=== PATIENT | female | born 1995 | race Asian ===

== ENCOUNTER 2017-03-18 19:28 | Emergency (ER) | payer OTHER ==
[~2017-03-18] VITALS: Ht 165.1 cm; Wt 61.0 kg
[2017-03-18 19:43] VITALS: TEMP 36.8; Ht 165.1 cm; Wt 61.0 kg
[2017-03-18] MEDS ORDERED: ACETAMINOPHEN 500 MG TAB PO STA (19:54)
[2017-03-18] MEDS ORDERED: ALBUTEROL HFA 8 GM INHALER INH ONE (20:00)
--- NOTE | 2017-03-18 20:09 | EMERGENCY ROOM VISIT NOTE ---
History Report prepared by Arash: Nataly Gilman Under the Supervision of: Dr. Fidencio Carmen M.D. First contact with patient: 19:49 Chief Complaint: FLU LIKE SX Stated Complaint: COLD,FEVER,COUGH History of Present Illness The patient is a 21 year old female who presents to the Emergency Room with complaints of worsening flu-like symptoms for the past 3 weeks. The patient states that she has had cold symptoms for the past 3 weeks. She reports rhinorrhea and a productive cough. Her symptoms have not been improving. Yesterday she developed a fever. She states that she has had a fever today as well. She did not check her temperature [employer]. The patient has been taking ibuprofen for her symptoms. She denies ear pain, sore throat, vomiting, diarrhea , urinary symptoms, and chance of . She did not get a flu shot this year. She denies any recent sick contacts. Source of History: patient Onset: 3 weeks ago Position: other (global) Quality: other (flu-like) Timing: worsening Modifying Factors (Relieving): ibuprofen Associated Symptoms: + fevers, + cough, No sorethroat, No vomiting, No diarrhea, No urinary symptoms Review of Systems See HPI for pertinent positives & negatives. A total of 10 systems reviewed and were otherwise negative. Past Medical & Surgical Medical Problems: (1) No significant active problems Family History No pertinent history stated. Social History Smoking Status: Never Smoker Occupation Status: [employer] student Current/Historical Medications Scheduled Amoxicillin (Amoxil), 500 MG PO TID Oseltamivir (Tamiflu), 75 MG PO BID Scheduled PRN ["Fever Medicine"], 1 DOSE PO DIRECTED PRN for Fever Allergies Coded Allergies: No Known Allergies (Unverified , 03/18/17) Physical Exam Vital Signs Date Time Temp Pulse Resp B/P (MAP) Pulse Ox O2 Delivery O2 Flow Rate FiO2 03/18/17 19:43 36.8 97 16 121/82 95 Room Air Physical Exam GENERAL: Patient is in no acute distress. HEENT: No acute trauma, normocephalic atraumatic, mucous membranes moist, no nasal congestion, no scleral icterus. TMs clear bilaterally. No throat erythema or exudate. NECK: No stridor, no adenopathy, no meningismus, trachea is midline. LUNGS: Decreased breath sounds, no wheezing or rhonchi, breath sounds are equal , dry cough noted. HEART: Without murmurs gallops or rubs, regular rate and rhythm. ABDOMEN: Soft, nontender, bowel sounds positive, no hernias, no peritonitis. EXTREMITIES: No cyanosis or edema, full range of motion of all the joints without pain or difficulty, no signs for acute trauma. NEUROLOGIC: Oriented x 3, no acute motor or sensory deficits, no focal weakness. SKIN: No rash, no jaundice, no diaphoresis. Medical Decision & Procedures ER Provider Diagnostic Interpretation: Radiology results as stated below per my review and radiologist interpretation: CHEST ONE VIEW PORTABLE HISTORY: 21 years-old Female cough, fever acute cough and fever COMPARISON: None available TECHNIQUE: Portable AP view of the chest FINDINGS: Cardiomediastinal and hilar silhouettes are within normal limits. No pneumothorax, pleural effusion, focal airspace consolidation or overt pulmonary edema. The bones of the chest appear grossly intact. IMPRESSION: No acute process. The above report was generated using voice recognition software. It may contain grammatical, syntax or spelling errors. Electronically signed by: Dejon Huang M.D. 03/18/2017 8:17 PM Dictated Date/Time: 03/18/2017 8:16 PM Medications Administered Medications (Trade) Dose Ordered Sig/Jael Route Start Time Stop Time Status Last Admin Dose Admin Albuterol (Ventolin Hfa Inhaler) 3 puffs NOW ONCE INH 03/18/17 20:00 03/18/17 20:01 DC 03/18/17 20:06 3 PUFFS Acetaminophen (Tylenol Tab) 1,000 mg NOW STAT PO 03/18/17 19:54 03/18/17 19:56 DC 03/18/17 20:06 1,000 MG ED Course 1948: The patient was evaluated in room B5. A complete history and physical exam was performed. 1953: Tylenol 1000 mg PO 1999: Albuterol 3 puffs INH 2016: Tamiflu 75 mg PO, Amoxicillin 500 mg PO 2020: I reassessed the patient at this time. She is feeling better and resting comfortably. I discussed the results and treatment plan with the patient. I answered all pertaining questions that she had. She expressed understanding and verbalized agreement. The patient will be discharged home. Medical Decision Differential diagnoses includes influenza, flu-like illness, sinusitis, pneumonia, dehydration, pharyngitis, otitis media. The patient presents with 3 weeks of cold symptoms and now fever for 2 days. Chest film does not show pneumonia. On exam, there is no pharyngitis or otitis media. She was not toxic or hypoxic. Patient likely has influenza or a flulike illness. Sinusitis is a consideration with the cold symptoms for 3 weeks. I will treat for both. She was given albuterol via MDI for the decreased breath sounds and presumed bronchospasm. She received Tamiflu orally, amoxicillin orally, she was given oral Tylenol. The patient is being discharged on the same. If worsening, she can return for reassessment. Medication Reconcilliation Current Medication List: was personally reviewed by me Blood Pressure Screening Patient's blood pressure: Normal blood pressure Impression Primary Impression: Influenza-like symptoms Additional Impression: Sinusitis Scribe Attestation The scribe's documentation has been prepared under my direction and personally reviewed by me in its entirety. I confirm that the note above accurately reflects all work, treatment, procedures, and medical decision making performed by me. Departure Information Dispostion Home / Self-Care Prescriptions Amoxicillin (AMOXIL) 500 Mg Tab 500 MG PO TID, #30 TAB Prov: Fidencio Carmen M.D. 03/18/17 Oseltamivir (Tamiflu) 75 Mg Cap 75 MG PO BID, #10 CAP Prov: Fidencio Carmen M.D. 03/18/17 Referrals No Doctor, Assigned (PCP) Forms HOME CARE DOCUMENTATION FORM, IMPORTANT VISIT INFORMATION Patient Instructions My [facility] [employer] Additional Instructions amoxicillin 3x per day for 10 days tamiflu 2x per day for 5 days fluids rest albuterol 3 puffs every 6 hours to help your breathing and cough advil and or tylenol for fever and pain return if worsening no pneumonia noted on xray today Problem Qualifiers
[2017-03-18] MEDS ORDERED: AMOXICILLIN 250 MG CAP PO STA (20:17)
[2017-03-18] MEDS ORDERED: OSELTAMIVIR PHOSPHATE 75 MG CAP PO STA (20:17)
--- NOTE | 2017-03-18 20:18 | DIAGNOSTIC IMAGING REPORT ---
CHEST ONE VIEW PORTABLE HISTORY: 21 years-old Female cough, fever acute cough and fever COMPARISON: None available TECHNIQUE: Portable AP view of the chest FINDINGS: Cardiomediastinal and hilar silhouettes are within normal limits. No pneumothorax, pleural effusion, focal airspace consolidation or overt pulmonary edema. The bones of the chest appear grossly intact. IMPRESSION: No acute process. The above report was generated using voice recognition software. It may contain grammatical, syntax or spelling errors. Electronically signed by: Djeon Huang M.D. 03/18/2017 8:17 PM Dictated Date/Time: 03/18/2017 8:16 PM
[2017-03-18] MEDS ORDERED: [UNRECOGNIZED DRUG - REMARK] PO (20:23)
[2017-03-18] MEDS ORDERED: AMOX500T3 PO (20:27)
[2017-03-18] MEDS ORDERED: OSEL75CA12 PO (20:27)
[2017-03-18 21:18] VITALS: BP 101/67; PULSE 90; O2SAT 97
[2017-03-19] MEDS ORDERED: IBUP-103 PO (22:45)
== END 2017-03-18 21:21 | disposition home or self-care (01) ==
LOC: C.EDB 19:31
DX: R69 Illness, unspecified (principal); J32.9 Chronic sinusitis, unspecified

== ENCOUNTER 2017-03-19 22:12 | Emergency (ER) | payer OTHER ==
[~2017-03-19] VITALS: Ht 162.6 cm; Wt 60.8 kg
[~2017-03-19 22:12] MED LIST: AMOX500T3 PO; OSEL75CA12 PO; [UNRECOGNIZED DRUG - REMARK] PO
[2017-03-19 22:17] VITALS: Ht 162.6 cm; Wt 60.8 kg
[2017-03-19] MEDS ORDERED: ACETAMINOPHEN 500 MG TAB PO STA (22:33)
[2017-03-19] MEDS ORDERED: IBUP-103 PO (22:45)
[2017-03-19 23:13] VITALS: BP 98/64; PULSE 92; TEMP 37; O2SAT 97
--- NOTE | 2017-03-19 23:26 | EMERGENCY ROOM VISIT NOTE ---
History First contact with patient: 22:25 Chief Complaint: COUGH Stated Complaint: COUGH Nursing Triage Summary: pt reports seen here 1 day ago for cough congestion , had xray completed "it was normal" given Rx for Amoxicillin and tamiflu, aslo sent home with albuterol inh. pt reports this seems to not be helping . Pt reports when treating fever only taking ibuprofen 1 tablet every 6 hours History of Present Illness The patient is a 21 year old female who presents to the Emergency Room via private vehicle accompanied by male with complaints of "cough". The patient states that she was seen here one day ago for cough and congestion and had x- ray which was normal. She states that she was given amoxicillin and Tamiflu. She states that she has not improved, and now she has a fever. She states that she has had sore throat for 3 weeks, runny nose, cough, with fever 3 days. MAXIMUM TEMPERATURE 101.8F. This is orally. She has no medical problems. Review of Systems A complete 10-point Review of Systems was discussed with the patient, with pertinent positives and negatives listed in the History of Present Illness. All remaining Review of Systems questions can be considered negative unless otherwise specified. Past Medical/Surgical History Medical Problems: (1) No significant active problems Social History Smoking Status: Never Smoker Occupation Status: [employer] student Current/Historical Medications Scheduled Amoxicillin (Amoxil), 500 MG PO TID Oseltamivir (Tamiflu), 75 MG PO BID Scheduled PRN Ibuprofen Tab (Advil), 400 MG PO Q6 PRN for Pain or Fever Physical Exam Vital Signs Date Time Temp Pulse Resp B/P (MAP) Pulse Ox O2 Delivery O2 Flow Rate FiO2 03/19/17 23:13 37.0 92 16 98/64 97 03/19/17 22:17 38.0 111 18 116/74 96 Room Air Physical Exam VITAL SIGNS - Vital signs and nursing notes were reviewed. Stable. Febrile at 38C. Tachycardic 111. Normotensive. GENERAL -21-year-old female appearing her stated age who is in no acute distress. Communicates well with provider and answers questions appropriately. SKIN - Without rashes. No petechial rashes. No meningeal rash. HEAD - NC/AT. EYES - PERRL with EOMI bilaterally. Sclera anicteric. EARS - No deformities of external structures noted on gross examination bilaterally. NOSE - Midline and without cyanosis. MOUTH/OROPHARYNX - Without perioral cyanosis. Buccal mucosa pink and moist and without leukoplakia. Tongue midline with equal elevation of palate bilaterally. No tonsillar hypertrophy, erythema, or exudates noted. Fair dentition noted. NECK - Neck with FROM. Supple to palpation. Minimal anterior cervical lymphadenopathy noted. No nuchal rigidity. LUNGS - Chest wall symmetric without accessory muscle use, intercostals retractions, or central cyanosis. Normal vesicular breath sounds CTA B/L. No wheezes, rales, or rhonchi appreciated. CARDIAC - RRR with S1/S2. No murmur, rubs, or gallops appreciated. Medical Decision & Procedures Medications Administered Medications (Trade) Dose Ordered Sig/Jael Route Start Time Stop Time Status Last Admin Dose Admin Acetaminophen (Tylenol Tab) 500 mg NOW STAT PO 03/19/17 22:33 03/19/17 22:34 DC 03/19/17 22:45 500 MG Medical Decision Patient was seen and evaluated as above. Previous visit was reviewed. She is nontoxic on exam, appears well, and is hemodynamically stable. She was given Tylenol. This responded very well and she became afebrile. Her tachycardia improved with by mouth fluid trial. I do not believe that blood work at this time is warranted, and given her negative chest x-ray yesterday believe this is likely a viral process. I informed her that this could be viral and the medication she was prescribed may not work, and even if they do it may take days. She verbalized understanding. She appears stable for outpatient management. She is to follow up with [facility]. No evidence of sepsis or emergent process. They were educated upon management, educated upon worrisome symptoms in which to return, had questions answered prior to discharge, and was discharged home in good condition. In the evaluation and treatment of this patient the following differential diagnoses were entertained: Viral URI, pharyngitis, sepsis, among others. Impression Primary Impression: Cough Additional Impression: Upper respiratory infection Departure Information Dispostion Home / Self-Care Condition GOOD Referrals [facility] (PCP) Patient Instructions My [facility] Additional Instructions You were seen in the emergency department for your upper respiratory tract illness. Please take your previously prescribed tamiflu and amoxicillin. For pain and fever control, you can use the following [id number] medicines (if >12 yo): - Regular strength (325mg/tab) Tylenol (acetaminophen) 2 tabs every 6 hours as needed. Do not exceed 12 tablets in a 24 hour period. Avoid taking more than 3 grams (3000 mg) of Tylenol per day. This includes any other sources of acetaminophen you may take on a regular basis. - Regular strength (200 mg/tab) Advil (ibuprofen) 2 tabs every 6 hours as needed. Do not exceed a dose of 3200 mg per day. - For best results, alternate dosing of Tylenol and ibuprofen. In addition to your prescribed medications, you can also use the following home remedies: Return to the emergency department if your symptoms persist or worsen over the next 2-3 days despite treatment course outlined above. Return to the emergency department if you develop the following symptoms of: inability to swallow solids , liquids, or drool; excessive wheezing or inability to catch your breath; or intractable fever or pain. Follow up with your primary care provider in 2-3 days from today's emergency department visit. Problem Qualifiers
== END 2017-03-19 23:32 | disposition home or self-care (01) ==
LOC: C.EDB 22:13 → C.EDD 23:32
DX: J06.9 Acute upper respiratory infection, unspecified (principal); R00.0 Tachycardia, unspecified